=== PATIENT | male | born 1955 | race Caucasian/White ===

== ENCOUNTER 2017-12-31 17:18 | Inpatient (IN) | payer OTHER ==
[~2017-12-31] VITALS: Ht 185.4 cm; Wt 83.0 kg
[2018-01-04] MEDS ORDERED: DIOVAN160 M1 PO (10:33)
[2018-01-04] MEDS ORDERED: TAMSULOSIN HCL0.4 MG PO (10:34)
== END 2018-01-14 09:10 | disposition home or self-care (01) | DRG 331 ==
LOC: SURG 01-11 05:50 → O/R 01-11 05:50 → SURH 01-11 07:00 → SURG 01-11 09:05
PROVIDERS: Colon & Rectal Surgery
PROC: 0DTN4ZZ Resection of Sigmoid Colon, Percutaneous Endoscopic Approach (ICD-10-PCS; principal; 2018-01-11 07:00)
DX: K57.32 Diverticulitis of large intestine without perforation or abscess without bleeding (principal); N40.1 Benign prostatic hyperplasia with lower urinary tract symptoms; I12.9 Hypertensive chronic kidney disease with stage 1 through stage 4 chronic kidney disease, or unspecified chronic kidney disease; N18.3 Chronic kidney disease, stage 3 (moderate); D64.89 Other specified anemias; M62.838 Other muscle spasm; M94.0 Chondrocostal junction syndrome [Tietze]; R07.89 Other chest pain

== ENCOUNTER 2018-01-26 19:30 | Emergency (ER) | payer OTHER ==
[~2018-01-26] VITALS: Ht 182.9 cm; Wt 81.6 kg
[~2018-01-26 19:30] MED LIST: DIOVAN160 M1 PO; TAMSULOSIN HCL0.4 MG PO
== END 2018-01-26 23:41 | disposition home or self-care (01) ==
LOC: ER 19:30
DX: R53.1 Weakness (principal); R50.9 Fever, unspecified